=== PATIENT | female | born 1935 | race Caucasian/White ===

== ENCOUNTER 2021-05-16 20:54 | Emergency (ER) | payer MEDICARE, BC ==
--- NOTE | 2021-05-16 22:22 | EDM.PDOC ---
ED HPI GENERAL MEDICAL PROBLEM - General Chief Complaint: General Stated Complaint: HIGH CALCIUM Time Seen by Provider: 05/16/21 22:13 - History of Present Illness INITIAL COMMENTS - FREE TEXT/NARRATIVE: 86-year-old female brought into the emergency room because her calcium was too high. Patient is anticipating cataract surgery and had some routine lab work drawn and was sent here because her calcium was high. Apparently there was some communication with [facility] in here who said her ionized calcium was 1.7 or something like that. The patient feels absolutely fine she does not hurt anywhere she is not having any symptoms she does not have any weakness. She is not having any heart palpitations. - Related Data Allergies Allergy/AdvReac Type Severity Reaction Status Date / Time No Known Allergies Allergy Verified 05/16/21 21:37 Past Medical History Cardiovascular History: Reports: High Cholesterol, Hypertension Musculoskeletal History: Reports: Osteoporosis - Past Surgical History HEENT Surgical History: Reports: Cataract Surgery Neurological Surgical History: Reports: Lumbar Spine Social & Family History - Tobacco Use Tobacco Use Status *Q: Current Every Day Tobacco User Years of Tobacco use: 60 Packs/Tins Daily: 0.5 ED ROS GENERAL - Review of Systems Review Of Systems: See Below Constitutional: Reports: No Symptoms Respiratory: Reports: No Symptoms Cardiovascular: Reports: No Symptoms GI/Abdominal: Reports: No Symptoms ED EXAM, GENERAL - Physical Exam Exam: See Below Exam Limited By: No Limitations General Appearance: Alert, No Apparent Distress Head: Atraumatic, Normocephalic Neck: Normal Inspection, Supple, Non-Tender, Full Range of Motion Respiratory/Chest: No Respiratory Distress, Lungs Clear, Normal Breath Sounds, No Accessory Muscle Use, Chest Non-Tender Cardiovascular: Regular Rate, Rhythm, No Edema, No Murmur GI/Abdominal: Normal Bowel Sounds, Soft, Non-Tender Course - Vital Signs Last Recorded V/S: Last Vital Signs Temp 36.6 C 05/16/21 21:33 Pulse 75 05/16/21 21:33 Resp 20 05/16/21 21:33 BP 158/71 H 05/16/21 21:33 Pulse Ox 99 05/16/21 21:33 - Orders/Labs/Meds Labs: Laboratory Tests 05/16/21 05/16/21 05/16/21 Range/Units 22:00 22:00 22:00 WBC 6.94 (3.98-10.04) K/mm3 RBC 4.68 (3.98-5.22) M/mm3 Hgb 14.7 (11.2-15.7) gm/dl Hct 45.1 H (34.1-44.9) % MCV 96.4 H (79.4-94.8) fl MCH 31.4 (25.6-32.2) pg MCHC 32.6 (32.2-35.5) g/dl RDW Std Deviation 45.0 (36.4-46.3) fL Plt Count 235 (182-369) K/mm3 MPV 8.8 L (9.4-12.3) fl Neut % (Auto) 45.8 (34.0-71.1) % Lymph % (Auto) 37.8 (19.3-51.7) % [place] % (Auto) 8.9 (4.7-12.5) % Eos % (Auto) 6.2 H (0.7-5.8) Baso % (Auto) 1.2 (0.1-1.2) % Neut # (Auto) 3.18 (1.56-6.13) K/mm3 Lymph # (Auto) 2.62 (1.18-3.74) K/mm3 [place] # (Auto) 0.62 H (0.24-0.36) K/mm3 Eos # (Auto) 0.43 H (0.04-0.36) K/mm3 Baso # (Auto) 0.08 (0.01-0.08) K/mm3 Sodium 144 (136-145) mEq/L Potassium 3.6 (3.5-5.1) mEq/L Chloride 107 (98-107) mEq/L Carbon Dioxide 32 (21-32) mEq/L Anion Gap 8.6 (5-15) BUN 21 H (7-18) mg/dL Creatinine 0.7 (0.55-1.02) mg/dL Est Cr Clr Drug Dosing 48.89 mL/min Estimated GFR (MDRD) > 60 (>60) mL/min BUN/Creatinine Ratio 30.0 H (14-18) Glucose 109 H (70-99) mg/dL Calcium 9.2 (8.5-10.1) mg/dL Magnesium 2.1 (1.8-2.4) mg/dL Total Bilirubin 0.5 (0.2-1.0) mg/dL AST 22 (15-37) U/L ALT 23 (14-59) U/L Alkaline Phosphatase 89 (46-116) U/L Total Protein 6.3 L (6.4-8.2) g/dl Albumin 3.7 (3.4-5.0) g/dl Globulin 2.6 gm/dL Albumin/Globulin Ratio 1.4 (1-2) - Re-Assessments/Exams Free Text/Narrative Re-Assessment/Exam: 05/16/21 22:34 At this point trying to get [facility] labs and were redrawing labs here. 05/17/21 00:17 05/17/21 00:28 Her calcium is normal here at [facility] it was 10.8 ionized calcium was 1.4. The patient has no symptoms her calcium is less than 12 this does not require emergent therapy. I discussed this with the patient and family they will follow-up in the clinic this next week. Departure - Departure Time of Disposition: 00:29 Disposition: Home, Self-Care 01 Clinical Impression: Hypercalcemia - Discharge Information Referrals: Samara Lopez MD [Primary Care Provider] - Forms: ED Department Discharge Additional Instructions: Return to the emergency room with any questions problems or worsening symptoms. Stop your calcium supplementation. Drink plenty of fluids. Follow-up in the clinic this next week. Sepsis Event Note (ED) - Evaluation Sepsis Screening Result: No Definite Risk - Focused Exam Vital Signs: Vital Signs Temp Pulse Resp BP Pulse Ox 05/16/21 21:33 36.6 C 75 20 158/71 H 99
== END 2021-05-17 00:36 | disposition home or self-care (01) ==
LOC: JD.ED 20:54
DX: E83.52 Hypercalcemia (principal); I10 Essential (primary) hypertension; Z72.0 Tobacco use
CPT/HCPCS: 36415; 80053; 83735; 85025; 99283